=== PATIENT | male | born 1965 | race Hispanic/Latino ===

== ENCOUNTER 2017-06-16 10:28 | Emergency (ER) | payer OTHER ==
[~2017-06-16 10:28] MED LIST: LORA1TAB3 PO
== END 2017-06-16 11:30 | disposition left against medical advice (07) ==
LOC: EDH 10:28
DX: R94.31 Abnormal electrocardiogram [ECG] [EKG] (principal); Z79.899 Other long term (current) drug therapy
CPT/HCPCS: 93005

== ENCOUNTER → 2018-08-28 | Outpatient (CLI) | payer OTHER | END | disposition home or self-care (01) | LOC: OIH 12:56 | PROVIDERS: ATTEND Nurse Practitioner Adult Health | DX: Z13.6 Encounter for screening for cardiovascular disorders (principal) | CPT/HCPCS: 75571 ==